=== PATIENT | female | born 1955 | race Caucasian/White ===

== ENCOUNTER 2018-10-04 14:09 | Outpatient (REF) | payer MEDICARE, SELFPAY ==
[2018-10-04 20:25] LABS: BUN 16 mg/dL (7-18); CREATININE 0.88 mg/dL (0.55-1.02); Calcium 9.3 mg/dL (8.5-10.1); Chloride 105 mmol/L (98-107); Glucose 105 mg/dL (70-100); Sodium 140 mmol/L (136-145)
== END 2018-10-04 14:29 ==
LOC: NCHCN 14:09
PROVIDERS: PCP Nurse Practitioner Family; Visit Provider Nurse Practitioner Family
DX: I10 Essential (primary) hypertension (principal)
CPT/HCPCS: 80048

== ENCOUNTER 2019-10-08 13:24 | Outpatient (REF) | payer MEDICARE, SELFPAY ==
[2019-10-08 20:18] LABS: ALT 106 U/L (14-59); AST 64 U/L (15-37); Albumin 3.5 g/dL (3.4-5.0); Alkaline Phosphatase 164 U/L (46-116); BUN 17 mg/dL (7-18); Bilirubin, Total 1.4 mg/dL (0.2-1.0); CREATININE 0.92 mg/dL (0.55-1.02); Calcium 9.9 mg/dL (8.5-10.1); Calculated LDL 142 mg/dL (<100); Chloride 104 mmol/L (98-107); Cholesterol 215 mg/dL (<200); Glucose 111 mg/dL (74-106); HDL Cholesterol 55 mg/dL (40-60); Sodium 141 mmol/L (136-145); Total Protein 6.9 g/dL (6.4-8.2); Triglyceride 90 mg/dL (<150)
== END 2019-10-08 13:44 ==
LOC: NCHCN 13:24
PROVIDERS: PCP Nurse Practitioner Family; Visit Provider Nurse Practitioner Family
DX: I10 Essential (primary) hypertension (principal); K76.0 Fatty (change of) liver, not elsewhere classified; E78.5 Hyperlipidemia, unspecified; E66.9 Obesity, unspecified
CPT/HCPCS: 80053; 80061

== ENCOUNTER 2019-11-02 13:07 | Outpatient (REF) | payer MEDICARE, SELFPAY ==
[2019-11-02 19:22] LABS: Potassium 3.4 mmol/L (3.5-5.1)
== END 2019-11-02 13:27 ==
LOC: NCHCN 13:07
PROVIDERS: PCP Nurse Practitioner Family; Visit Provider Nurse Practitioner Family
DX: E87.6 Hypokalemia (principal)
CPT/HCPCS: 84132

== ENCOUNTER 2020-04-07 14:19 | Outpatient (REF) | payer MEDICARE, SELFPAY ==
[2020-04-07 15:44] LABS: Anion Gap 13.1 mmol/L (3-11); BUN 14 mg/dL (7-18); CO2 23.9 mmol/L (21.0-32.0); CREATININE 0.8 mg/dL (0.55-1.02); Calcium 10.1 mg/dL (8.5-10.1); Chloride 99 mmol/L (98-107); Glucose 125 mg/dL (74-106); Potassium 3.1 mmol/L (3.5-5.1); Sodium 136 mmol/L (136-145); TSH (W/Ref FT4) 3.85 uIU/mL (0.36-3.74)
[2020-04-07 16:22] LABS: FREE T4 1.03 ng/dL (0.76-1.46)
== END 2020-04-07 14:20 | disposition home or self-care (01) ==
LOC: NCHCN 14:19
PROVIDERS: PCP Nurse Practitioner Family; Visit Provider Nurse Practitioner Family
DX: I10 Essential (primary) hypertension (principal); E87.6 Hypokalemia
CPT/HCPCS: 80048; 84439; 84443

== ENCOUNTER 2020-05-06 15:13 | Outpatient (REF) | payer MEDICARE, SELFPAY ==
[2020-05-06 15:23] LABS: Anion Gap 12.1 mmol/L (3-11); BUN 17 mg/dL (7-18); CO2 25.9 mmol/L (21.0-32.0); CREATININE 0.8 mg/dL (0.55-1.02); Calcium 9.9 mg/dL (8.5-10.1); Chloride 103 mmol/L (98-107); Glucose 111 mg/dL (74-106); Potassium 3.6 mmol/L (3.5-5.1); Sodium 141 mmol/L (136-145)
== END 2020-05-06 15:14 | disposition home or self-care (01) ==
LOC: NCHCN 15:13
PROVIDERS: PCP Nurse Practitioner Family; Visit Provider Nurse Practitioner Family
DX: E87.6 Hypokalemia (principal)
CPT/HCPCS: 80048

== ENCOUNTER 2020-05-31 03:58 | Emergency (ER) | payer MEDICARE, SELFPAY ==
[2020-05-31] VITALS (21 sets, daily range): BP systolic 129–158; BP diastolic 44–93; PULSE 56–79; RESP 16; TEMP 36.2; O2SAT 94–98
--- NOTE | 2020-05-31 04:00 | RT.EKG_ITS ---
APPROVED REPORT Exam: Resting ECG Patient Location: E HR:70 bpm ECG Measurements Heart Rate 70 AXIS IA [id number] P [id number] QRSd 150 QRS 33 QT 447 T 9 QTc 482 Conclusion Atrial fibrillation...V-rate 57- 79, irreg A-activity Right bundle branch block...QRSd>120, terminal axis(90,270) Physician: Rate 70, right bundle branch block, intermittent atrial fibrillation versus otherwise unsp ecified block. No significant ST elevations or depression. No STEMI. No prior EKG for comparison
--- NOTE | 2020-05-31 04:06 | W.ED.GENAD ---
Discharge Plan Disposition Patient Disposition: OTHER Condition: Stable Discharge Details Chief Complaint: Abd Prob Clinical Impression: Abdominal pain, Choledocholithiasis, Acute gallstone pancreatitis, Transaminitis, Paroxysmal A-fib Primary Care Provider: Shea Dinero ED Provider: Jeramy Rutherford Home Meds and New Rx's Prescriptions: No Action losartan 50 mg Tablet 50 mg PO DAILY RF: 0 thalidomide 50 mg Capsule 25 mg PO DAILY RF: 0 sumatriptan succinate 25 mg Tablet 25 mg PO DAILY PRNRF: 0 aspirin 81 mg Tablet 81 mg PO DAILY RF: 0 potassium chloride 20 mEq Tablet Extended Release 30 meq PO DAILY RF: 0 Medical Decision Making 65-year-old female with a past medical history of hypertension and tonsillectomy presents today for evaluation of right upper quadrant pain. Patient states that 5 days ago she developed right upper quadrant pain nausea vomiting diarrhea which she attributed to her gallbladder. She changed her diet, for the last 4 days she has had no return of the symptoms until tonight. Tonight she noticed sharp right upper quadrant abdominal pain, worse with palpation in the abdomen. She has had no vomiting or nausea though. She denies any diarrhea. She does admit to slight increased urinary frequency and darker color for her urine. She denies any previous problems otherwise. Pain radiates to her right shoulder blade. No radiation anywhere else. She denies any chest pain, chest tightness, chest heaviness. She denies any arm neck or shoulder pain. No other complaints at this time. No other modifying factors. Exam demonstrates notable right upper quadrant reproducible tenderness, positive Hernandez sign. Symptoms are concerning for acute cholecystitis. Cardiac etiology seems unlikely. Urinary component is certainly on the differential. We will rehydrate, give Toradol, get a CT scan, monitor closely and reassess 6:56 AM Patient laboratory work-up has returned, patient is slightly leukopenic at 3.98, platelets are slightly low at 66. No bandemia or left shift. There is neutrophil predominance though. Lactate is elevated at 1.9. Total bilirubin is 5.2, conjugated bilirubin is 4. Transaminitis of 119 and 210 for AST and ALT respectively. Lipase is elevated at 2500. Troponin unremarkable. Patient has not yet urinated. CT scan shows a markedly distended gallbladder at 15 cm by nearly 5 cm. As well as a notably dilated common bile duct concerning for impacted stone and choledocholithiasis. No evidence of acute cholecystitis per virtual radiology. Symptoms clinically are not yet indicative of ascending cholangitis she has no fever or white count. Pain is notably well managed with just the Toradol. However she clearly does need an ERCP. I did contact her surgeon Dr. Rodríguez, and he feels that the patient needs transfer for the ERCP as it cannot be provided here. I did contact [facility] and they do not have any bed availability. Additionally they stated specifically because it is the weekend they are not able to do their and back procedures. We contacted [facility] and discussed the case with medicine and while they did accept the patient they state that the bed is not available for the next 48 hours and recommend admission to our facility until then. I did contact the medicine team about that, and they do not feel comfortable with the patient here that long pending the procedure. We reached out to [facility] in [place] and they did not have any availability. We did reach out to the [facility], and [facility] was available for both ERCP capabilities and transfer. I discussed the case with the ED physician Dr. Roger and he agrees and accepts the patient for transfer. I discussed all this with the patient as well, she agrees with the plan. Patient will be transferred via EMS for ERCP management. I have extensively reviewed the treatment plan with the patient. I have addressed all patient concerns at this time. I have also discussed the plan with the admitting physician and they agree with the current assessment and plan and have agreed to assume responsibility for the patient. All parties demonstrate verbal understanding and agreement with our assessment and plan at this time. The documentation in this chart was dictated using [employer] dictation software. Please excuse any dictation errors. At time of transfer the patient was reassessed and continued to demonstrate current medical stability. No signs of acute respiratory distress requiring intubation, hemodynamic instability requiring pressor support, or rapidly declining mental status. The patient is stable for transport. EKG 4: 13 Rate 70, right bundle branch block, intermittent atrial fibrillation versus otherwise unspecified block. No significant ST elevations or depression. No STEMI. No prior EKG for comparison FINDINGS: Liver: Normal. No mass. Gallbladder and bile ducts: Moderate biliary ductal dilatation. Distended gallbladder. Pancreas: Tiny cystic areas in the pancreatic body. Spleen: Splenomegaly, clinically correlate. Adrenal glands: Normal. No mass. Kidneys and ureters: Normal. No hydronephrosis. Stomach and bowel: Unremarkable. No obstruction. No mucosal thickening. Appendix: No evidence of appendicitis. Intraperitoneal space: Unremarkable. No free air. No significant fluid collection. Vasculature: Unremarkable. No abdominal aortic aneurysm. Lymph nodes: Unremarkable. No enlarged lymph nodes. Urinary bladder: Unremarkable as visualized. Reproductive: Unremarkable as visualized. Bones/joints: Unremarkable. No acute fracture. Soft tissues: Unremarkable. IMPRESSION: Moderate biliary ductal dilatation. Thank you for allowing us to participate in the care of your patient. Dictated and Authenticated by: Laurent Mckenzie MD 05/31/2020 5:19 AM Eastern Time ([place] & [place]) HPI General Date/Time Provider Initiated Documentation: 05/31/20 03:59. HPI Narrative: 65-year-old female with a past medical history of hypertension and tonsillectomy presents today for evaluation of right upper quadrant pain. Patient states that 5 days ago she developed right upper quadrant pain nausea vomiting diarrhea which she attributed to her gallbladder. She changed her diet, for the last 4 days she has had no return of the symptoms until tonight. Tonight she noticed sharp right upper quadrant abdominal pain, worse with palpation in the abdomen. She has had no vomiting or nausea though. She denies any diarrhea. She does admit to slight increased urinary frequency and darker color for her urine. She denies any previous problems otherwise. Pain radiates to her right shoulder blade. No radiation anywhere else. She denies any chest pain, chest tightness, chest heaviness. She denies any arm neck or shoulder pain. No other complaints at this time. No other modifying factors. Related Data Home Medications Medication Instructions Recorded Confirmed aspirin 81 mg PO DAILY 05/31/20 05/31/20 losartan 50 mg PO DAILY 05/31/20 05/31/20 potassium chloride 30 meq PO DAILY 05/31/20 05/31/20 sumatriptan succinate 25 mg PO DAILY PRN 05/31/20 05/31/20 thalidomide 25 mg PO DAILY 05/31/20 05/31/20 Allergies Allergy/AdvReac Type Severity Reaction Status Date / Time latex Allergy Intermediate Hives Unverified 05/31/20 04:33 Review of Systems All systems reviewed & are unremarkable except as noted in HPI and below PFSH Social History (Reviewed 05/31/20 @ 04:09 by ROSALES Monet Smoking/Tobacco Use Status: Never Smoking risk assessment performed?: Yes Alcohol Intake: never Substance use type: does not use Do you feel safe at home: Yes Do you feel safe in your relationship?: Yes Exam Narrative Exam Narrative: 1.Const: Well-nourished, Well-developed, appearing stated age 2.Eyes: PERRL, no conjunctival injection, and symmetrical lids. 3.ENT: Atraumatic external nose and ears. Moist MM. Neck: Symmetric, trachea midline, No thyromegaly. 4.CVS: +S1/S2, No murmurs or gallops. Peripheral pulses 2+ and equal in all extremities. Brisk capillary refill in all extremities. 5.RESP: Unlabored respiratory effort. Clear to auscultation bilaterally. No wheezes rales or rhonchi 6.GI: Soft, nondistended, notable right upper quadrant tenderness, positive Hernandez sign. No pain at McBurney's point. Negative Rovsing sign. 7.MSK: Normocephalic/Atraumatic, Extremities w/o deformity or ttp No cyanosis or clubbing, Normal movement of all extremities 8.Skin: Warm, Dry. No rashes or lesions. 9.Neuro: resawyer II-XII grossly intact. Sensation grossly intact, no focal neurologic deficits. 10.Psych: (AAO) x3. Appropriate mood and affect
[2020-05-31] MEDS: Ketorolac 30 MG/ML VIAL IVP (04:32)
[2020-05-31 04:38] LABS: Lactate 1.9 mmol/L (0.6-1.4)
[2020-05-31 04:40] LABS: Abs Immature Grans 0.01 10^3/uL (0.0-0.06); Absolute Basophil Count 0.01 10^3/uL (0.0-0.2); Absolute Eosinophil Count 0.02 10^3/uL (0.0-0.7); Absolute Lymphocyte Count 0.51 10^3/uL (1.2-3.4); Absolute Monocyte Count 0.21 10^3/uL (0.1-0.8); Absolute Neutrophil Count 3.22 10^3/uL (1.2-6.7); Basophils % 0.3; Eosinophils % 0.5; HCT 43.1 % (36.0-46.0); HGB 14.6 g/dL (11.2-15.7); Immature Grans % 0.3; Lymphocytes % 12.8; MCH 31.3 pg (27.0-33.0); MCHC 33.9 % (32.0-36.0); MCV 92.5 fL (80-95); MPV 10.7 fL (8.0-11.0); Monocytes % 5.3; Neutrophils % 80.8; Nucleated RBC 0 %; RBC 4.66 10^6/uL (3.93-5.22); RDW 13.9 % (11.7-14.6); RDW-SD 47.2 fL; WBC 3.98 10^3/uL (4.4-10.8)
[2020-05-31] MEDS: Normal Saline 500 ML IV (04:40)
--- NOTE | 2020-05-31 04:47 | DI.CT_ITS ---
EXAM: CT ABDOMEN PELVIS WO INDICATION: ruq pain, r/o gb. COMPARISON: No exams were available for comparison TECHNIQUE: FINDINGS: CT examination of the abdomen and pelvis was performed with a bolus infusion of 100 cc of Omnipaque 3 50. Images obtained through the lung bases are unremarkable. There is question of a mildly nodular hepatic contour, please correlate regarding any history of cirr hosis. Spleen is enlarged and contains a calcified granuloma. No definite focal hepatic lesion seen . Gallbladder is markedly distended. There is severe dilatation of the common duct which measures up t o 26 millimeters in diameter and appears dilated to at or near its distal portion. Pancreas is predo minantly fatty replaced. No definite pancreatic mass seen on this noncontrast study. No definite ch oledocholithiasis. Pancreas appears normal. Spleen is unremarkable in appearance. Adrenals appear normal. The kidneys are unremarkable with no evidence of hydronephrosis, nephrolithiasis, or renal mass.. Ur inary bladder unremarkable. Abdominal aorta is of normal diameter and no major vascular abnormality is seen. No abdominal wall hernia. No abdominal or pelvic adenopathy. MACHINE SETTER structures appear intact. Appendix is not specifically visualized but there is no specific evidence of appendicitis. No eviden ce of diverticulitis or bowel obstruction. IMPRESSION: Marked distention of the gallbladder and severe dilatation extra and intrahepatic biliary ducts. Haily pect obstruction of the distal common duct. Correlation with ultrasound and MRCP suggested. RADIATION DOSE DELIVERED: 1,435.12mGy.cm Total DLP 1,435.12mGy.cm Total DLP RADIATION OPTIMIZATION: All CT scans at this facility use at least one of these dose optimization te chniques: automated exposure control; mA and/or kV adjustment per patient size (includes targeted exa ms where dose is matched to clinical indication); or iterative reconstruction.
[2020-05-31 04:54] LABS: ALT 210 U/L (14-59); AST 119 U/L (15-37); Albumin 3.2 g/dL (3.4-5.0); Alkaline Phosphatase 183 U/L (46-116); Anion Gap 11.6 mmol/L (3-11); BUN 21 mg/dL (7-18); Bilirubin, Total 5.2 mg/dL (0.2-1.0); CO2 25.4 mmol/L (21.0-32.0); Calcium 9.9 mg/dL (8.5-10.1); Chloride 100 mmol/L (98-107); Estimated GFR 55.64 (mL/min/1.73m2); Glucose 164 mg/dL (74-106); Potassium 3.3 mmol/L (3.5-5.1); Sodium 137 mmol/L (136-145); Total Protein 7.3 g/dL (6.4-8.2)
[2020-05-31 05:01] LABS: Lipase 2587 U/L (73-393); Troponin I < 0.05 ng/mL (<0.06)
[2020-05-31 05:09] LABS: Platelet Count 66 10^3/uL (130-400)
[2020-05-31 05:10] LABS: Diff Comment PLT Morph Reviewed; RBC Morphology Normal
--- NOTE | 2020-05-31 05:20 | DI.VRAD_ITS ---
PROCEDURE INFORMATION: Exam: CT Abdomen And Pelvis Without Contrast Exam date and time: 05/31/2020 4:42 AM Age: 65 years old Clinical indication: Abdominal pain; Localized; Right upper quadrant (ruq) TECHNIQUE: Imaging protocol: Computed tomography of the abdomen and pelvis without contrast. Radiation optimization: All CT scans at this facility use at least one of these dose optimization techniques: automated exposure control; mA and/or kV adjustment per patient size (includes targeted exams where dose is matched to clinical indication); or iterative reconstruction. COMPARISON: CR RT HIP COMPLETE AP PELVIS 11/29/2013 8:58 AM FINDINGS: Liver: Normal. No mass. Gallbladder and bile ducts: Moderate biliary ductal dilatation. Distended gallbladder. Pancreas: Tiny cystic areas in the pancreatic body. Spleen: Splenomegaly, clinically correlate. Adrenal glands: Normal. No mass. Kidneys and ureters: Normal. No hydronephrosis. Stomach and bowel: Unremarkable. No obstruction. No mucosal thickening. Appendix: No evidence of appendicitis. Intraperitoneal space: Unremarkable. No free air. No significant fluid collection. Vasculature: Unremarkable. No abdominal aortic aneurysm. Lymph nodes: Unremarkable. No enlarged lymph nodes. Urinary bladder: Unremarkable as visualized. Reproductive: Unremarkable as visualized. Bones/joints: Unremarkable. No acute fracture. Soft tissues: Unremarkable. IMPRESSION: Moderate biliary ductal dilatation. Dictated and Authenticated by: Laurent Mckenzie MD. Ordering:LEE Deshpande MD
[2020-05-31 06:59] LABS: COVID-19 PCR Negative (Negative)
[2020-05-31 07:23] LABS: Blood Negative (Negative); Clarity Clear (Clear); Glucose Negative (Negative); Leukocyte Esterase Negative (Negative); Nitrite Negative (Negative); Specific Gravity 1.025 (1.005-1.025); pH 5.5 (5-8)
[2020-05-31 07:40] LABS: Bacteria Moderate HPF (Negative); Crystals Moderate Amorphous HPF (Negative); Epithelial Cells Many HPF (Negative)
[2020-05-31 07:41] LABS: C & S Indicated? No/Sq. Contamination; Casts Negative LPF (Negative); Mucus Moderate (Negative)
== END 2020-05-31 07:50 | disposition other institution (70) ==
PROVIDERS: Emergency Provider Student in an Organized Health Care Education/Training Program; PCP Nurse Practitioner Family
DX: R10.11 Right upper quadrant pain (principal); K80.50 Calculus of bile duct without cholangitis or cholecystitis without obstruction; K85.10 Biliary acute pancreatitis without necrosis or infection; R74.01 Elevation of levels of liver transaminase levels; I48.0 Paroxysmal atrial fibrillation
CPT/HCPCS: 80053; 83690; 87635; 93005; 96361; 96374; 99285; 74176; 81003; 81015; 82248; 83605; 84484; 85025; 93010; 99284; J1885

== ENCOUNTER 2020-06-10 14:01 | Outpatient (REF) | payer MEDICARE, SELFPAY ==
[2020-06-10 18:47] LABS: HCT 43.9 % (36.0-46.0); HGB 14.4 g/dL (11.2-15.7); MCH 31.3 pg (27.0-33.0); MCHC 32.8 % (32.0-36.0); MCV 95.4 fL (80-95); MPV 12.7 fL (8.0-11.0); Platelet Count 102 10^3/uL (130-400); RDW 14.6 % (11.7-14.6); RDW-SD 50.9 fL; WBC 4.93 10^3/uL (4.4-10.8)
[2020-06-10 19:25] LABS: ALT 106 U/L (14-59); AST 77 U/L (15-37); Albumin 3.3 g/dL (3.4-5.0); Alkaline Phosphatase 189 U/L (46-116); Anion Gap 8.6 mmol/L (3-11); BUN 8 mg/dL (7-18); Bilirubin, Direct 0.8 mg/dL (0.0-0.2); Bilirubin, Total 1.6 mg/dL (0.2-1.0); CO2 26.4 mmol/L (21.0-32.0); CREATININE 0.9 mg/dL (0.55-1.02); Chloride 103 mmol/L (98-107); Glucose 94 mg/dL (74-106); Sodium 138 mmol/L (136-145)
== END 2020-06-10 14:02 | disposition home or self-care (01) ==
LOC: NCHCN 14:01
PROVIDERS: PCP Nurse Practitioner Family; Visit Provider Nurse Practitioner Family
DX: E87.6 Hypokalemia (principal); I49.9 Cardiac arrhythmia, unspecified; K76.0 Fatty (change of) liver, not elsewhere classified
CPT/HCPCS: 80048; 80076; 85027

== ENCOUNTER 2020-06-12 02:21 | Outpatient (RCR) | payer MEDICARE, SELFPAY ==
--- NOTE | 2020-06-12 10:30 | HOLTER_ITS ---
APPROVED REPORT This was a 48-hour Holter monitor, ordered for irregular heartbeat Rhythm throughout was sinus with an average heart rate of 84. Minimum was 53, maximum 123 There were rare ventricular ectopic beats, 1 couplet and 1 triplet There were frequent atrial premature beats There was no atrial fibrillation, no pauses greater than 3 seconds, no high-grade AV block Patient symptoms were reported
== END 2020-06-13 23:59 | disposition home or self-care (01) ==
LOC: RT 02:21
PROVIDERS: PCP Nurse Practitioner Family; Visit Provider Nurse Practitioner Family
DX: I49.8 Other specified cardiac arrhythmias (principal); I49.1 Atrial premature depolarization
CPT/HCPCS: 93225; 93226

== ENCOUNTER 2020-06-19 08:54 | Outpatient (CLI) | payer MEDICARE, SELFPAY | END 2020-06-19 08:55 | disposition home or self-care (01) | LOC: CARDO 07-04 12:03 | PROVIDERS: PCP Nurse Practitioner Family; Referring Provider Nurse Practitioner Family; Visit Provider Internal Medicine Cardiovascular Disease | DX: I49.8 Other specified cardiac arrhythmias (principal); I49.1 Atrial premature depolarization | CPT/HCPCS: 93227 ==

== ENCOUNTER 2020-07-03 13:31 | Outpatient (CLI) | payer MEDICARE, SELFPAY ==
--- NOTE | 2020-07-03 13:45 | RT.EKG_ITS ---
APPROVED REPORT Exam: Resting ECG Reason for Exam: previous a-fib Patient Location: O HR:83 bpm ECG Measurements Heart Rate 83 AXIS UT 113 P -41 QRSd 142 QRS 18 QT 396 T 16 QTc 466 Conclusion Sinus rhythm...normal P axis, V-rate 50- 99 Borderline short UT interval...UT int <120mS Right bundle branch block...QRSd>120, terminal axis(90,270)
== END 2020-07-03 13:32 | disposition home or self-care (01) ==
LOC: DI.CARD 13:59
PROVIDERS: PCP Nurse Practitioner Family; Referring Provider Nurse Practitioner Family; Visit Provider Internal Medicine Cardiovascular Disease
DX: I48.0 Paroxysmal atrial fibrillation (principal)
CPT/HCPCS: 93010

== ENCOUNTER → 2020-07-03 13:31 | Outpatient (BNVA) | payer MEDICARE, SELFPAY | PROVIDERS: PCP Nurse Practitioner Family; Referring Provider Nurse Practitioner Family; Visit Provider Internal Medicine Cardiovascular Disease | DX: I48.0 Paroxysmal atrial fibrillation (principal); I49.1 Atrial premature depolarization | CPT/HCPCS: 93005; 99204; 99215 ==

== ENCOUNTER 2020-07-10 14:50 | Outpatient (REF) | payer MEDICARE, SELFPAY ==
[2020-07-10 15:49] LABS: HCT 42.6 % (36.0-46.0); HGB 14.4 g/dL (11.2-15.7); MCH 31.1 pg (27.0-33.0); MCHC 33.8 % (32.0-36.0); MPV 12.7 fL (8.0-11.0); RBC 4.63 10^6/uL (3.93-5.22); RDW 13.9 % (11.7-14.6); RDW-SD 46.4 fL; WBC 4.06 10^3/uL (4.4-10.8)
[2020-07-10 17:11] LABS: ALT 61 U/L (14-59); AST 52 U/L (15-37); Albumin 3.6 g/dL (3.4-5.0); Alkaline Phosphatase 119 U/L (46-116); Bilirubin, Direct 0.4 mg/dL (0.0-0.2); Bilirubin, Total 1.6 mg/dL (0.2-1.0)
[2020-07-11 08:52] LABS: Platelet Count 73 10^3/uL (130-400)
[2020-07-11 15:54] LABS: Anion Gap 14.5 mmol/L (3-11); BUN 9 mg/dL (7-18); CO2 22.5 mmol/L (21.0-32.0); CREATININE 0.8 mg/dL (0.55-1.02); Calcium 9.9 mg/dL (8.5-10.1); Chloride 105 mmol/L (98-107); Glucose 111 mg/dL (74-106); Potassium 3.6 mmol/L (3.5-5.1); Sodium 142 mmol/L (136-145)
== END 2020-07-10 14:51 | disposition home or self-care (01) ==
LOC: NCHCN 14:50
PROVIDERS: PCP Nurse Practitioner Family; Visit Provider Nurse Practitioner Family
DX: K80.50 Calculus of bile duct without cholangitis or cholecystitis without obstruction (principal); I49.9 Cardiac arrhythmia, unspecified; Z87.19 Personal history of other diseases of the digestive system
CPT/HCPCS: 80048; 80076; 85027

== ENCOUNTER 2020-07-15 03:07 | Outpatient (CLI) | payer MEDICARE, SELFPAY ==
[2020-07-15 14:02] LABS: Absolute Basophil Count 0.02 10^3/uL (0.0-0.2); Absolute Eosinophil Count 0.08 10^3/uL (0.0-0.7); Absolute Lymphocyte Count 1.39 10^3/uL (1.2-3.4); Absolute Monocyte Count 0.36 10^3/uL (0.1-0.8); Absolute Neutrophil Count 2.51 10^3/uL (1.2-6.7); Basophils % 0.5; Eosinophils % 1.8; HCT 41.4 % (36.0-46.0); HGB 13.8 g/dL (11.2-15.7); Lymphocytes % 31.9; MCH 31.7 pg (27.0-33.0); MCHC 33.3 % (32.0-36.0); MPV 11.3 fL (8.0-11.0); Monocytes % 8.3; Neutrophils % 57.5; Nucleated RBC 0 %; RBC 4.36 10^6/uL (3.93-5.22); RDW-SD 49.1 fL; WBC 4.36 10^3/uL (4.4-10.8)
[2020-07-15 14:11] LABS: INR 1.1 (0.9-1.1); Prothrombin Time 11.2 sec (9.3-11.0)
[2020-07-15 14:16] LABS: Diff Comment Diff Reviewed; Platelet Count 70 10^3/uL (130-400); RBC Morphology Normal
[2020-07-15 14:50] LABS: Bilirubin, Direct 0.4 mg/dL (0.0-0.2); Bilirubin, Total 1.2 mg/dL (0.2-1.0); LDH 149 U/L (81-234)
[2020-07-16 09:51] LABS: Hepatitis B Surface Ag Negative (Negative)
[2020-07-16 09:58] LABS: Haptoglobin 50 mg/dL (32-197)
[2020-07-16 10:38] LABS: Hepatitis C Ab w Rflx HCV PCR Negative (Negative)
== END 2020-07-15 03:08 | disposition home or self-care (01) ==
LOC: LBO 03:07
PROVIDERS: PCP Nurse Practitioner Family; Visit Provider Nurse Practitioner Family
DX: D69.6 Thrombocytopenia, unspecified (principal); Z11.59 Encounter for screening for other viral diseases
CPT/HCPCS: 36415; 86803; 87340; 82247; 82248; 83010; 83615; 85025; 85610

== ENCOUNTER 2020-08-04 03:17 | Outpatient (CLI) | payer MEDICARE, SELFPAY ==
[2020-08-04 13:16] LABS: Abs Immature Grans 0.01 10^3/uL (0.0-0.06); Absolute Basophil Count 0.02 10^3/uL (0.0-0.2); Absolute Eosinophil Count 0.07 10^3/uL (0.0-0.7); Absolute Lymphocyte Count 1.35 10^3/uL (1.2-3.4); Absolute Monocyte Count 0.29 10^3/uL (0.1-0.8); Absolute Neutrophil Count 2.19 10^3/uL (1.2-6.7); Basophils % 0.5; Eosinophils % 1.8; HCT 40.9 % (36.0-46.0); HGB 13.4 g/dL (11.2-15.7); Immature Grans % 0.3; Lymphocytes % 34.4; MCH 31.2 pg (27.0-33.0); MCHC 32.8 % (32.0-36.0); MCV 95.3 fL (80-95); MPV 10.6 fL (8.0-11.0); Monocytes % 7.4; Neutrophils % 55.6; Nucleated RBC 0 %; RBC 4.29 10^6/uL (3.93-5.22); RDW 13.9 % (11.7-14.6); RDW-SD 48.3 fL; WBC 3.93 10^3/uL (4.4-10.8)
[2020-08-04 13:41] LABS: Diff Comment Diff Reviewed; Platelet Count 59 10^3/uL (130-400); RBC Morphology Normal
== END 2020-08-04 03:18 | disposition home or self-care (01) ==
LOC: LBO 03:17
PROVIDERS: PCP Nurse Practitioner Family; Visit Provider Internal Medicine Hematology
DX: D69.6 Thrombocytopenia, unspecified (principal)
CPT/HCPCS: 36415; 85025

== ENCOUNTER 2020-08-04 13:24 | Outpatient (REF) | payer MEDICARE, SELFPAY ==
[2020-08-05 12:47] LABS: Helicobacter pylori Ag, Feces Negative (Negative)
== END 2020-08-04 13:25 | disposition home or self-care (01) ==
LOC: LBN 13:24
PROVIDERS: PCP Nurse Practitioner Family; Visit Provider Internal Medicine Hematology
DX: R79.89 Other specified abnormal findings of blood chemistry (principal); D69.6 Thrombocytopenia, unspecified; Z87.19 Personal history of other diseases of the digestive system
CPT/HCPCS: 87338

== ENCOUNTER 2020-10-14 15:05 | Outpatient (REF) | payer MEDICARE, SELFPAY ==
[2020-10-14 19:56] LABS: HCT 43.1 % (36.0-46.0); HGB 14.1 g/dL (11.2-15.7); MCH 30.5 pg (27.0-33.0); MCHC 32.7 % (32.0-36.0); MCV 93.1 fL (80-95); Platelet Count 62 10^3/uL (130-400); RBC 4.63 10^6/uL (3.93-5.22); RDW 14.3 % (11.7-14.6); RDW-SD 48.2 fL; WBC 4.84 10^3/uL (4.4-10.8)
== END 2020-10-14 15:06 | disposition home or self-care (01) ==
LOC: NCHCN 15:05
PROVIDERS: PCP Nurse Practitioner Family; Visit Provider Nurse Practitioner Family
DX: D69.6 Thrombocytopenia, unspecified (principal)
CPT/HCPCS: 85027

== ENCOUNTER 2020-12-31 13:44 | Outpatient (REF) | payer MEDICARE, SELFPAY ==
[2020-12-31 14:34] LABS: Abs Immature Grans 0.02 10^3/uL (0.0-0.06); Absolute Basophil Count 0.02 10^3/uL (0.0-0.2); Absolute Eosinophil Count 0.05 10^3/uL (0.0-0.7); Absolute Lymphocyte Count 0.95 10^3/uL (1.2-3.4); Absolute Monocyte Count 0.29 10^3/uL (0.1-0.8); Absolute Neutrophil Count 2.24 10^3/uL (1.2-6.7); Basophils % 0.6; Eosinophils % 1.4; HCT 42.5 % (36.0-46.0); HGB 13.7 g/dL (11.2-15.7); Immature Grans % 0.6; Lymphocytes % 26.6; MCH 29.7 pg (27.0-33.0); MCHC 32.2 % (32.0-36.0); MPV 10.9 fL (8.0-11.0); Monocytes % 8.1; Neutrophils % 62.7; Nucleated RBC 0 %; RBC 4.62 10^6/uL (3.93-5.22); RDW 14.2 % (11.7-14.6); WBC 3.57 10^3/uL (4.4-10.8)
[2020-12-31 14:46] LABS: TSH 2.96 uIU/mL (0.36-3.74)
[2020-12-31 14:52] LABS: Platelet Count 72 10^3/uL (130-400)
== END 2020-12-31 13:45 | disposition home or self-care (01) ==
LOC: NCHCN 13:44
PROVIDERS: PCP Nurse Practitioner Family; Visit Provider Nurse Practitioner Family
DX: I10 Essential (primary) hypertension (principal); D69.6 Thrombocytopenia, unspecified; R73.9 Hyperglycemia, unspecified; R89.1 Abnormal level of hormones in specimens from other organs, systems and tissues; K74.60 Unspecified cirrhosis of liver
CPT/HCPCS: 83036; 84443; 85025

== ENCOUNTER 2021-01-19 22:16 | Outpatient (REF) | payer MEDICARE, SELFPAY ==
[2021-01-19 22:52] LABS: Calculated LDL 131 mg/dL (<100); Cholesterol 217 mg/dL (<200); HDL Cholesterol 66 mg/dL (40-60); Triglyceride 101 mg/dL (<150)
== END 2021-01-19 22:17 | disposition home or self-care (01) ==
LOC: NCHCN 22:16
PROVIDERS: PCP Nurse Practitioner Family; Visit Provider Nurse Practitioner Family
DX: E78.5 Hyperlipidemia, unspecified (principal); E66.9 Obesity, unspecified; K76.0 Fatty (change of) liver, not elsewhere classified
CPT/HCPCS: 80061

== ENCOUNTER 2022-04-06 18:04 | Outpatient (REF) | payer OTHER, SELFPAY ==
[2022-04-06 18:57] LABS: HCT 44.6 % (36.0-46.0); MCH 30.9 pg (27.0-33.0); MCHC 33.6 % (32.0-36.0); MCV 92 fL (80-95); MPV 12.1 fL (8.0-11.0); Platelet Count 72 10^3/uL (130-400); RBC 4.85 10^6/uL (3.93-5.22); RDW 14.4 % (11.7-14.6); RDW-SD 48.2 fL; WBC 5.68 10^3/uL (4.4-10.8)
[2022-04-06 19:08] LABS: ALT 56 U/L (14-59); AST 46 U/L (15-37); Albumin 3.4 g/dL (3.4-5.0); Alkaline Phosphatase 150 U/L (46-116); Anion Gap 10.7 mmol/L (3-11); BUN 15 mg/dL (7-18); Bilirubin, Total 1.7 mg/dL (0.2-1.0); CO2 24.3 mmol/L (21.0-32.0); CREATININE 0.9 mg/dL (0.55-1.02); Calcium 10.1 mg/dL (8.5-10.1); Chloride 105 mmol/L (98-107); Estimated GFR 70.07 (mL/min/1.73m2); Glucose 120 mg/dL (74-106); Potassium 3.6 mmol/L (3.5-5.1); Sodium 140 mmol/L (136-145); Total Protein 7.1 g/dL (6.4-8.2)
[2022-04-06 19:12] LABS: Hemoglobin A1C 4.7 % (<5.7)
== END 2022-04-06 18:05 | disposition home or self-care (01) ==
LOC: NCHCN 18:04
PROVIDERS: PCP Nurse Practitioner Family; Visit Provider Nurse Practitioner Family
DX: R73.9 Hyperglycemia, unspecified (principal); I10 Essential (primary) hypertension; E78.5 Hyperlipidemia, unspecified
CPT/HCPCS: 80053; 85027; 83036

== ENCOUNTER 2022-04-12 00:50 | Outpatient (CLI) | payer OTHER, SELFPAY ==
--- NOTE | 2022-04-12 | DI.MAMMO_ITS ---
Exam(s) MAMMO SCREENING EXAM: MAMMO SCREENING CLINICAL HISTORY: SCREENING FOR BREAST CANCER Z12.39 TECHNIQUE: Bilateral full field digital CC and MLO mammographic images were obtained with 3D tomosyn thesis and utilizing computer aided detection (CAD). COMPARISON: Available for comparison. FINDINGS: Masses/Architectural Distortion: None seen. The patient is status post left breast biopsy. Microcalcifications: No suspicious pleomorphic-type are seen. There is scattered punctate calcificati on clusters in both breasts. But no suspicious clusters are seen at this time. Skin Thickening/Nipple Retraction: None. IMPRESSION: 1. No significant interval change with no specific features of malignancy noted. 2. Unless there is more urgent need, screening mammography is recommended, as per [employer] guidelines. BI-RADS Category 2 - Benign Findings Breast Density - Category B - Scattered areas of fibroglandular density Breast density category C or D implies that the patient has dense breast tissue. Dense breast tissue is very common and is not abnormal but dense breast tissue can make it harder to find cancer on a ma mmogram. Also, dense breast tissue may increase their breast cancer risk. This information about the result of the mammogram report was provided to the patient to raise their awareness. Use this report when you speak with the patient about their risks for breast cancer, which includes their family hist ory. At that time, you may recommend for more screening tests (Ultrasound or MRI) as they might be us eful based on their risk. A negative radiographic report should not delay biopsy if a dominant or clinically suspicious mass is present. Up to ten percent of cancers are not identified on mammography. A negative report may reinforce clinical impression. Adenosis and dense breasts may obscure an underlying neoplasm. False positive reports average 6 to 10%. Patient will receive a letter notifying them of these results.
== END 2022-04-12 01:10 ==
LOC: DI 00:51
PROVIDERS: PCP Nurse Practitioner Family; Visit Provider Nurse Practitioner Family
DX: Z12.31 Encounter for screening mammogram for malignant neoplasm of breast (principal); R92.1 Mammographic calcification found on diagnostic imaging of breast
CPT/HCPCS: 77063; 77067

== ENCOUNTER 2023-12-01 03:09 | Outpatient (CLI) | payer MEDICARE, SELFPAY ==
[2023-12-01 14:49] LABS: Abs Immature Grans 0.01 10^3/uL (0.0-0.06); Absolute Basophil Count 0.01 10^3/uL (0.0-0.2); Absolute Eosinophil Count 0.06 10^3/uL (0.0-0.7); Absolute Lymphocyte Count 0.85 10^3/uL (1.2-3.4); Basophils % 0.3 %; Eosinophils % 1.7 %; HCT 40.5 % (36.0-46.0); HGB 13.6 g/dL (11.2-15.7); Immature Grans % 0.3 %; Lymphocytes % 24.1 %; MCH 31.3 pg (27.0-33.0); MCHC 33.6 % (32.0-36.0); MCV 93 fL (80-95); MPV 10.1 fL (8.0-11.0); Monocytes % 8.5 %; Neutrophils % 65.1 %; RBC 4.35 10^6/uL (3.93-5.22); RDW 14.6 % (11.7-14.6); RDW-SD 50.2 fL; WBC 3.53 10^3/uL (4.4-10.8)
[2023-12-01 15:20] LABS: Platelet Count 49 10^3/uL (130-400)
[2023-12-01 15:21] LABS: Diff Comment Diff Reviewed; RBC Morphology Normal
[2023-12-01 15:56] LABS: ALT 50 U/L (14-59); AST 44 U/L (15-37); Albumin 3.1 g/dL (3.4-5.0); Alkaline Phosphatase 152 U/L (46-116); Anion Gap 8.1 mmol/L (3-11); BUN 17 mg/dL (7-18); Bilirubin, Total 2.06 mg/dL (0.2-1.0); CO2 28.9 mmol/L (21.0-32.0); CREATININE 0.7 mg/dL (0.55-1.02); Chloride 108 mmol/L (98-107); Estimated GFR 94.15 (mL/min/1.73m2); Glucose 114 mg/dL (74-106); Sodium 145 mmol/L (136-145); Total Protein 6.5 g/dL (6.4-8.2)
== END 2023-12-01 03:10 | disposition home or self-care (01) ==
LOC: LBO 03:10
PROVIDERS: PCP Nurse Practitioner Family; Visit Provider Nurse Practitioner Family
DX: D69.6 Thrombocytopenia, unspecified (principal); Z23 Encounter for immunization; M48.061 Spinal stenosis, lumbar region without neurogenic claudication; I10 Essential (primary) hypertension; E78.5 Hyperlipidemia, unspecified
CPT/HCPCS: 36415; 80053; 85025

== ENCOUNTER 2023-12-02 00:36 | Outpatient (CLI) | payer MEDICARE, SELFPAY ==
--- NOTE | 2023-12-02 07:15 | DI.RAD_ITS ---
Exam(s) XR LUMBAR SPINE COMP W FLEX/EX EXAM: XR LUMBAR SPINE COMP W FLEX/EX CLINICAL HISTORY: worse low back pain,lumbar spine stenosis, m48.061. TECHNIQUE: 2D digital imaging was performed of the lumbar spine. Seven images were obtained. AP, l ateral, right oblique, left oblique, flexion, extension and L5-S1 spot views were obtained. COMPARISON: CR LUMBAR SPINE COMPLETE from 05/29/2014 FINDINGS: BONES: No fracture or destructive lesion. There are endplate osteophytes at multiple levels of the gm mbar spine. Degenerative changes of the facets are seen in the lower lumbar spine. DISKS: There is disc space narrowing at L5-S1. ALIGNMENT: Lumbar spinal alignment is within normal limits. There is no significant subluxation with flexion or extension. No spondylolysis or spondylolisthesis. SOFT TISSUE: Vascular calcifications are present. IMPRESSION: Moderate degenerative changes in the lumbar spine. DATA REPOSITORY: RADIATION DOSE DELIVERED:
== END 2023-12-02 00:56 ==
LOC: DI 00:36
PROVIDERS: PCP Nurse Practitioner Family; Visit Provider Nurse Practitioner Family
DX: M48.061 Spinal stenosis, lumbar region without neurogenic claudication (principal)
CPT/HCPCS: 72114

== ENCOUNTER 2023-12-14 11:54 | Outpatient (CLI) | payer MEDICARE, SELFPAY ==
--- NOTE | 2023-12-14 11:45 | RT.EKG_ITS ---
APPROVED REPORT Exam: Resting ECG Reason for Exam: Medication management Patient Location: O HR:58 bpm ECG Measurements Heart Rate 58 AXIS AK 197 P 48 QRSd 156 QRS 34 QT 453 T 12 QTc 445 Conclusion Sinus rhythm...normal P axis, V-rate 50- 99 Right bundle branch block...QRSd>120, terminal axis(90,270)
== END 2023-12-14 11:55 | disposition home or self-care (01) ==
LOC: DI.KIM 11:55
PROVIDERS: PCP Nurse Practitioner Family; Visit Provider Nurse Practitioner Family
DX: Z79.899 Other long term (current) drug therapy (principal)
CPT/HCPCS: 93010

== ENCOUNTER 2024-07-04 02:56 | Outpatient (CLI) | payer MEDICARE, SELFPAY ==
[2024-07-04 10:26] LABS: HCT 42.8 % (36.0-46.0); HGB 14.6 g/dL (11.2-15.7); MCH 31.3 pg (27.0-33.0); MCHC 34.1 % (32.0-36.0); MCV 92 fL (80-95); MPV 10.5 fL (8.0-11.0); RBC 4.67 10^6/uL (3.93-5.22); RDW 14.8 % (11.7-14.6); RDW-SD 49.7 fL; WBC 3.32 10^3/uL (4.4-10.8)
[2024-07-04 10:44] LABS: Anion Gap 8.2 mmol/L (3-11); BUN 20 mg/dL (7-18); CO2 24.8 mmol/L (21.0-32.0); CREATININE 0.9 mg/dL (0.55-1.02); Calcium 9.7 mg/dL (8.5-10.1); Calculated LDL 123 mg/dL (<100); Chloride 105 mmol/L (98-107); Cholesterol 216 mg/dL (<200); Glucose 127 mg/dL (74-106); HDL Cholesterol 78 mg/dL (>or=50); Potassium 3.5 mmol/L (3.5-5.1); Sodium 138 mmol/L (136-145); Triglyceride 77 mg/dL (<150)
[2024-07-04 10:50] LABS: Platelet Count 55 10^3/uL (130-400)
== END 2024-07-04 02:57 | disposition home or self-care (01) ==
LOC: LBO 02:56
PROVIDERS: PCP Nurse Practitioner Family; Referring Provider Nurse Practitioner Family; Visit Provider Nurse Practitioner Family
DX: I10 Essential (primary) hypertension (principal); D69.6 Thrombocytopenia, unspecified; E78.5 Hyperlipidemia, unspecified
CPT/HCPCS: 36415; 80048; 80061; 85027